=== PATIENT | female | born 1990 | race American Indian/Alaskan Native ===

== ENCOUNTER 2019-06-02 02:28 | Emergency (ER) | payer SELFPAY ==
[2019-06-02] MEDS ORDERED: ONDANSETRON 4 MG ODT TAB PO ONE (03:01)
[2019-06-02] MEDS ORDERED: HYDROcodone/ACETAMINOPHEN 5-325 MG TAB PO ONE (03:01)
[2019-06-02] MEDS ORDERED: CLINDAMYCIN 300 MG CAP PO ONE (03:02)
--- NOTE | 2019-06-02 03:07 | Emergency Department Report ---
<SHUBHAMKOURTNEY CARABALLO - Last Filed: 06/02/19 03:53> ED General Adult HPI - General Chief complaint: Earache Stated complaint: FAINT,LIGHTHEADED, BLEEDING Source: patient Mode of arrival: Ambulatory Limitations: No Limitations - History of Present Illness Initial comments: Patient is a 28-year-old -Serbian female with no past medical history who presents to the ED with complaint of acute onset persistent headache, lightheadedness and syncope with painful swollen erythematous maculopapular rash with peak purulent discharge on the right ear canal for the last 1 hour. Patient states that she was walking to the bathroom from her room when she felt lightheaded and had a syncopal episode with brief loss of consciousness. Patient states that she then noticed blood on her right ear canal. Patient denies dizziness, chest pain, shortness of breath, fever, chills, cough, sore throat, change in vision, seizures, back pain or neck pain and loss of consc iousness or nausea and vomiting and diarrhea MD Complaint: syncope, right ear mass and pain -: Sudden, hour(s) (1) Location: head, face (right ear pain with swollen painful rash on right ear canal with purulent discharge) Radiation: non-radiation Severity scale (0 -10): 5 Quality: aching, sharp Consistency: constant Improves with: none Worsens with: none Associated Symptoms: headaches, loss of appetite, malaise, rash (right thelma canal with pain and purulent discharge), syncope. denies: denies other symptoms, confusion, chest pain, cough, diaphoresis, shortness of breath, weakness, other Treatments Prior to Arrival: none - Related Data Previous Rx's Medication Instructions Recorded Last Taken Type Clindamycin [Clindamycin CAP] 300 mg PO Q6H 10 Days #40 cap 06/02/19 Unknown Rx diphenhydrAMINE [Benadryl CAP] 25 mg PO Q8HR PRN #30 capsule 06/02/19 Unknown Rx traMADoL [Ultram] 50 mg PO Q6HR PRN #12 tablet 06/02/19 Unknown Rx Allergies Allergy/AdvReac Type Severity Reaction Status Date / Time Sulfa (Sulfonamide Allergy Hives Verified 06/02/19 02:42 Antibiotics) ED Review of Systems Constitutional: denies: chills, fever Eyes: denies: eye pain, eye discharge, vision change ENT: ear pain (right ear pain with swollen rash with purulent discharge), congestion. denies: throat pain Respiratory: denies: cough, shortness of breath, wheezing Cardiovascular: syncope. denies: chest pain, palpitations, dyspnea on exertion, other Endocrine: no symptoms reported Gastrointestinal: denies: abdominal pain, nausea, vomiting, diarrhea Genitourinary: denies: urgency, dysuria, discharge Musculoskeletal: denies: back pain, joint swelling, arthralgia Skin: rash (swollen erythematous painful rash with purulent discharge and pain on right ear lidia). denies: lesions Neurological: denies: headache, weakness, paresthesias Psychiatric: denies: anxiety, depression Hematological/Lymphatic: denies: easy bleeding, easy bruising ED Past Medical Hx - Past Medical History Previous Medical History?: Yes Additional medical history: Scoliosis - Surgical History Past Surgical History?: No - Social History Smoking Status: Never Smoker Substance Use Type: None - Medications Home Medications: Home Medications Medication Instructions Recorded Confirmed Last Taken Type Clindamycin [Clindamycin CAP] 300 mg PO Q6H 10 Days #40 cap 06/02/19 Unknown Rx diphenhydrAMINE [Benadryl CAP] 25 mg PO Q8HR PRN #30 capsule 06/02/19 Unknown Rx traMADoL [Ultram] 50 mg PO Q6HR PRN #12 tablet 06/02/19 Unknown Rx ED Physical Exam - General Limitations: No Limitations General appearance: alert, in no apparent distress - Head Head exam: Present: atraumatic, normocephalic, normal inspection - Eye Eye exam: Present: normal appearance, PERRL, EOMI Pupils: Present: normal accommodation - ENT ENT exam: Present: normal orophraynx, mucous membranes moist, other (Swollen erythematous severely tender rash on right ear canal with purulent discharge and bleeding) - Neck Neck exam: Present: normal inspection, full ROM. Absent: tenderness, lymphadenopathy - Respiratory Respiratory exam: Present: normal lung sounds bilaterally. Absent: respiratory distress, wheezes, stridor, chest wall tenderness, accessory muscle use, decreased breath sounds - Cardiovascular Cardiovascular Exam: Present: regular rate, normal rhythm, normal heart sounds. Absent: systolic murmur, diastolic murmur, rubs, gallop - GI/Abdominal GI/Abdominal exam: Present: soft, normal bowel sounds. Absent: tenderness, guarding, hyperactive bowel sounds, hypoactive bowel sounds, mass - Extremities Exam Extremities exam: Present: normal inspection, full ROM, normal capillary refill - Back Exam Back exam: Present: normal inspection, full ROM. Absent: tenderness, CVA tenderness (R), muscle spasm, paraspinal tenderness, vertebral tenderness - Neurological Exam Neurological exam: Present: alert, oriented X3, CN II-XII intact, normal gait, reflexes normal - Psychiatric Psychiatric exam: Present: normal affect, normal mood - Skin Skin exam: Present: warm, dry, intact, normal color. Absent: rash ED Medical Decision Making - Medical Decision Making This is a 28-year-old -Serbian female with no past medical history who presented to the ED with complaint of acute onset persistent headache, right ear canal pain due to erythematous maculopapular rash with purulent discharge and bleeding and a single episode of syncope with brief loss of consciousness but 1 hour ago. Labs were drawn, imaging tests also ordered including chest x-ray, head CT scan without contrast, EKG and patient was treated for pain and also given initial oral clindamycin by mouth 1. Orthostatic blood pressure was also ordered and patient also hydrated with normal saline 1 L IV bolus. Patient care transferred to Mr. Francois Galicia [employer] at shift change at [address]400 hrs. Mr[address] Sherif Galicia shall review all lab test results and imaging reports and make appropriate disposition. - Differential Diagnosis right canal abscess; lightheadedness; syncope; ED Disposition Clinical Impression: Syncope and collapse, Abscess of right ear canal, Orthostatic lightheadedness, Mastoiditis of right side Community acquired pneumonia Qualifiers: Laterality: left Lung location: upper lobe of lung Qualified Code(s): J18.9 - Pneumonia, unspecified organism Disposition: TO HOME OR SELFCARE Is pt being admited?: No Does the pt Need Aspirin: No Condition: Stable Instructions: Syncope (ED), Bacterial Pneumonia (ED), Abscess (ED), Sinusitis (ED) Additional Instructions: Dr. Glenn Maciel [address], [place] [id number] Prescriptions: diphenhydrAMINE [Benadryl CAP] 25 mg PO Q8HR PRN #30 capsule PRN Reason: Congestion Clindamycin [Clindamycin CAP] 300 mg PO Q6H 10 Days #40 cap traMADoL [Ultram] 50 mg PO Q6HR PRN #12 tablet PRN Reason: Pain Referrals: GLENN MACIEL MD [Referring] - DIANNE Forms: Work/School Release Form(ED) <SHERIF GALICIA - Last Filed: 06/02/19 07:29> ED Review of Systems ROS: Stated complaint: FAINT,LIGHTHEADED, BLEEDING Other details as noted in HPI ED Course Vital Signs 06/02/19 06/02/19 06/02/19 02:32 04:18 04:48 Temperature 98.5 F Pulse Rate 63 Respiratory 18 20 20 Rate Blood Pressure 103/64 O2 Sat by Pulse 100 97 Oximetry 06/02/19 05:18 Temperature Pulse Rate Respiratory 20 Rate Blood Pressure O2 Sat by Pulse Oximetry ED Medical Decision Making - Lab Data Result diagrams: 06/02/19 04:31 06/02/19 04:31 - Radiology Data Radiology results: report reviewed, image reviewed interpreted by me: Ordering Physician: SHERIF GALICIA NP Date of Service: 06/02/19 Procedure(s): CT angio chest Accession Number(s): [id number] cc: SHERIF GALICIA NP CTA CHEST WITH IV CONTRAST INDICATION: Shortness of breath. Chest pain. Possible PE. TECHNIQUE: Axial CT images were obtained through the chest after injection of 100 cc Omnipaque 350 IV contrast. 3 plane MIP reconstructions were produced. All CT scans at this location are performed using CT dose reduction for ALARA by means of automated exposure control. COMPARISON: 2 views of the chest from earlier today. FINDINGS: PULMONARY ARTERIES: Well-opacified without visualization of from emboli. AORTA AND ARTERIES: No significant abnormality. MEDIASTINUM: There are bilateral subcentimeter noncalcified thyroid nodules. The heart is normal in size without a significant pericardial effusion. No additional significant abnormality. LUNGS: Dense consolidation is noted anteriorly along the left upper lobe. Scattered noncalcified solid nodules are seen throughout the right lower lobe. The largest nodule is located inferiorly and laterally and measures 8.5 mm on image 85 of series 2. Tiny solid noncalcified nodules are seen along the left lower lobe. The lungs are otherwise clear. No pneumothorax or pleural effusion is seen. ADDITIONAL FINDINGS: There are bilateral shotty axillary nodes. UPPER ABDOMEN: No acute findings. BONES: There is moderate lower thoracic dextroscoliosis with associated focal kyphosis. No acute abnormality or aggressive appearing osseous lesion is seen. IMPRESSION: 1. No CT evidence for pulmonary embolism. 2. Consolidation of the left upper lobe correlates with the abnormality seen on the prior chest radiographs. Bilateral lower lobe pulmonary nodules measure up to 8.5 mm and are of uncertain significance. Considerations include pneumonia and malignancy. Please correlate with the clinical findings. A follow-up CT of the chest with contrast in one month is recommended to document clearing. 3. Additional findings as above. Signer Name: Donald Mcbride MD Signed: 06/02/2019 6:19 AM Workstation Name: [id number] Transcribed By: BOBBY Dictated By: Donald Mcbride MD Electronically Authenticated By: Donald Mcbride MD Signed Date/Time: 06/02/19618 DD/ 7 TD/TT: Ordering Physician: SIOMARA FERNÁNDEZ Date of Service: 06/02/19 Procedure(s): XR chest routine 2V Accession Number(s): [id number] cc: SIOMARA FERNÁNDEZ Fluoro Time In Minutes: CHEST 2 VIEWS INDICATION / CLINICAL INFORMATION: syncope. COMPARISON: None available. FINDINGS: SUPPORT DEVICES: None. HEART / MEDIASTINUM: No significant abnormality. LUNGS / PLEURA: There is a left upper lobe airspace opacity. The lungs are otherwise clear. No significant pleural effusion. No pneumothorax. ADDITIONAL FINDINGS: Moderate thoracic extra scoliosis is noted. No significant additional findings. IMPRESSION: Nonspecific left upper lobe opacity could represent pneumonia. Please correlate with the clinical findings. Signer Name: Donald Mcbride MD Signed: 06/02/2019 3:37 AM Workstation Name: [id number] Transcribed By: MN Dictated By: Donald Mcbride MD Electronically Authenticated By: Donald Mcbride MD Signed Date/Time: 06/02/19336 DD/ 4 TD/TT: Ordering Physician: SIOMARA FERNÁNDEZ Date of Service: 06/02/19 Procedure(s): CT head/brain wo con Accession Number(s): [id number] cc: SIOMARA FERNÁNDEZ CT HEAD WITHOUT CONTRAST INDICATION : Syncope, right ear abscess. TECHNIQUE: Axial, coronal and sagittal CT imaging was performed from the skull apex through the skull base without contrast. All CT scans at this location are performed using CT dose reduction for ALARA by means of automated exposure control. COMPARISON: None available. FINDINGS: PARENCHYMA: No mass, midline shift, hemorrhage, extraaxial collection or acute territorial infarction. VENTRICLES: Symmetric and normal in size. SOFT TISSUES: Soft tissues including the orbits appear normal. No distinct abnormality is seen along the soft tissues at the level of the right ear. BONES: No acute osseous abnormality. SINUSES: The visualized sinuses are clear. The right mastoid air cells are opacified. The left mastoid air cells are patent. ADDITIONAL FINDINGS: None. IMPRESSION: 1. No acute intracranial abnormality. 2. Opacification of the right mastoid air cells could be related to the patient's reported right ear abscess. Signer Name: Donald Mcbride MD Signed: 06/02/2019 3:25 AM Workstation Name: [id number] Transcribed By: BOBBY Dictated By: Donald Mcbride MD Electronically Authenticated By: Donald Mcbride MD Signed Date/Time: 06/02/19324 DD/ 2 TD/TT: - Medical Decision Making Tx: BC x 2, Lactic acid, crp, cbc, cmp, abx: rocephin 1gm ivpb, Vaccomycin 1gm ivpb, NS ivfs @20 cc.kcc bolus, dicussed tx plan with patient and familymember including possible transfer for ENT Service, dx: Mastoiditis , pending acceptance. 0632: ENT Consult to [facility] Dr. Maciel, will call back plan[place] [facility] [place] right Mastoiditis, CAP, Consulted ENT Dr. Isabel Maciel, recommendation : Outpatient follow up today in of fice, discussed same with patient and family, pt agrees with this treatment plan. will follow up today with Dr. Glenn Maciel [address], [place] [address] Critical care attestation.: If time is entered above; I have spent that time in minutes in the direct care of this critically ill patient, excluding procedure time. ED Disposition Time of Disposition: 07:29
[2019-06-02] MEDS ORDERED: SODIUM CHLORIDE 0.9% 1000 ML 1,000 ML IV ONE (03:17)
--- NOTE | 2019-06-02 03:30 | Cat Scan Report ---
CT HEAD WITHOUT CONTRAST INDICATION : Syncope, right ear abscess. TECHNIQUE: Axial, coronal and sagittal CT imaging was performed from the skull apex through the skul l base without contrast. All CT scans at this location are performed using CT dose reduction for ALA RA by means of automated exposure control. COMPARISON: None available. FINDINGS: PARENCHYMA: No mass, midline shift, hemorrhage, extraaxial collection or acute territorial infarctio n. VENTRICLES: Symmetric and normal in size. SOFT TISSUES: Soft tissues including the orbits appear normal. No distinct abnormality is seen along the soft tissues at the level of the right ear. BONES: No acute osseous abnormality. SINUSES: The visualized sinuses are clear. The right mastoid air cells are opacified. The left mastoi d air cells are patent. ADDITIONAL FINDINGS: None. IMPRESSION: 1. No acute intracranial abnormality. 2. Opacification of the right mastoid air cells could be related to the patient's reported right ear abscess. Signer Name: Donald Mcbride MD Signed: 06/02/2019 3:25 AM Workstation Name: [id number]
--- NOTE | 2019-06-02 03:41 | XRay Report ---
CHEST 2 VIEWS INDICATION / CLINICAL INFORMATION: syncope. COMPARISON: None available. FINDINGS: SUPPORT DEVICES: None. HEART / MEDIASTINUM: No significant abnormality. LUNGS / PLEURA: There is a left upper lobe airspace opacity. The lungs are otherwise clear. No signif icant pleural effusion. No pneumothorax. ADDITIONAL FINDINGS: Moderate thoracic extra scoliosis is noted. No significant additional findings. IMPRESSION: Nonspecific left upper lobe opacity could represent pneumonia. Please correlate with the clinical fin dings. Signer Name: Donald Mcbride MD Signed: 06/02/2019 3:37 AM Workstation Name: [id number]
[2019-06-02] MEDS ORDERED: cefTRIAXone/NS 1 GM/50 ML 1 GM/50 ML BAG IV ONE (04:15)
[2019-06-02] MEDS ORDERED: methylPREDNISolone Sod Succinate 125 MG/2 ML INJ IV ONE (04:15)
[2019-06-02] MEDS ORDERED: VANCOMYCIN/NS 1 GM/250 ML 1 GM/250 ML BAG IV ONE (04:15)
[2019-06-02 05:07] LABS: Basophils % (Auto) 0.3 % (0.0-1.8); Eosinophils # (Auto) 0.1 K/mm3 (0.0-0.4); Hematocrit 32.7 % (30.3-42.9); Hemoglobin 10.8 gm/dl (10.1-14.3); Lymphocytes # (Auto) 0.5 K/mm3 (1.2-5.4); Lymphocytes % (Auto) 15.7 % (13.4-35.0); Mean Corpuscular HGB Conc 33 % (30-34); Mean Corpuscular Volume 87 fl (79-97); Monocytes # (Auto) 0.3 K/mm3 (0.0-0.8); Monocytes % (Auto) 8.4 % (0.0-7.3); Platelet Count 239 K/mm3 (140-440); Red Blood Count 3.76 M/mm3 (3.65-5.03); Red Cell Distribution Width 13.4 % (13.2-15.2)
[2019-06-02 05:09] LABS: Alanine Aminotransferase 11 units/L (7-56); Albumin 3.6 g/dL (3.9-5); BUN/Creatinine Ratio 15; Blood Urea Nitrogen 9 mg/dL (7-17); Calcium 8.6 mg/dL (8.4-10.2); Hemolysis Index 0
--- NOTE | 2019-06-02 06:24 | Cat Scan Report ---
CTA CHEST WITH IV CONTRAST INDICATION: Shortness of breath. Chest pain. Possible PE. TECHNIQUE: Axial CT images were obtained through the chest after injection of 100 cc Omnipaque 350 IV contrast. 3 plane MIP reconstructions were produced. All CT scans at this location are performed using CT dose reduction for ALARA by means of automated exposure control. COMPARISON: 2 views of the chest from earlier today. FINDINGS: PULMONARY ARTERIES: Well-opacified without visualization of from emboli. AORTA AND ARTERIES: No significant abnormality. MEDIASTINUM: There are bilateral subcentimeter noncalcified thyroid nodules. The heart is normal in s ize without a significant pericardial effusion. No additional significant abnormality. LUNGS: Dense consolidation is noted anteriorly along the left upper lobe. Scattered noncalcified donal d nodules are seen throughout the right lower lobe. The largest nodule is located inferiorly and late rally and measures 8.5 mm on image 85 of series 2. Tiny solid noncalcified nodules are seen along the left lower lobe. The lungs are otherwise clear. No pneumothorax or pleural effusion is seen. ADDITIONAL FINDINGS: There are bilateral shotty axillary nodes. UPPER ABDOMEN: No acute findings. BONES: There is moderate lower thoracic dextroscoliosis with associated focal kyphosis. No acute abno rmality or aggressive appearing osseous lesion is seen. IMPRESSION: 1. No CT evidence for pulmonary embolism. 2. Consolidation of the left upper lobe correlates with the abnormality seen on the prior chest radio graphs. Bilateral lower lobe pulmonary nodules measure up to 8.5 mm and are of uncertain significance . Considerations include pneumonia and malignancy. Please correlate with the clinical findings. A fol low-up CT of the chest with contrast in one month is recommended to document clearing. 3. Additional findings as above. Signer Name: Donald Mcbride MD Signed: 06/02/2019 6:19 AM Workstation Name: [id number]
[2019-06-02 07:25] VITALS: BP 106/74
== END 2019-06-02 07:52 | disposition home or self-care (01) ==
LOC: ED 02:28
DX: J18.9 Pneumonia, unspecified organism (principal); H60.01 Abscess of right external ear; H70.91 Unspecified mastoiditis, right ear; Z88.2 Allergy status to sulfonamides; Z79.899 Other long term (current) drug therapy
CPT/HCPCS: 36415; 70450; 71046; 71275; 80053; 84484; 85025; 85379; 86140; 87040; 93005; 93010; 96365; 96366; 96368; 96375; 99284; J0696; J2930; J3370; J7030; Q9967; Q0162

== ENCOUNTER 2019-08-07 12:06 | Emergency (ER) | payer BC ==
[2019-08-07 12:29] VITALS: BP 95/60
--- NOTE | 2019-08-07 12:41 | Event Note ---
ED Screening Note ED Screening Note: 28-year-old female that presents with CP and cough with fever. This initial assessment/diagnostic orders/clinical plan/treatment(s) is/are subject to change based on patients health status, clinical progression and re- assessment by fellow clinical providers in the ED. Further treatment and workup at subsequent clinical providers discretion. Patient/guardian urged not to elope from the ED as their condition may be serious if not clinically assessed and managed. Initial orders include: CXR
--- NOTE | 2019-08-07 13:15 | XRay Report ---
CHEST 2 VIEWS INDICATION / CLINICAL INFORMATION: cp/cough. COMPARISON: 08/03/2018 FINDINGS: SUPPORT DEVICES: None. HEART / MEDIASTINUM: No significant abnormality. LUNGS / PLEURA: The left upper lobe opacity is unchanged. No pneumothorax. ADDITIONAL FINDINGS: Thoracolumbar scoliosis. IMPRESSION: 1. Left upper lobe disease is unchanged in appearance. Signer Name: Zay Holliday MD Signed: 08/07/2019 1:11 PM Workstation Name: [id number]
--- NOTE | 2019-08-07 14:09 | Emergency Department Report ---
ED General Adult HPI - General Chief complaint: Chest Pain Stated complaint: CHEST PAIN/COUGHING Time Seen by Provider: 08/07/19 12:40 Source: patient Mode of arrival: Ambulatory Limitations: No Limitations - History of Present Illness Initial comments: Patient is a 28-year-old F [place] female who is presenting with left-sided chest pain for 2 days. Patient states the pain is associated with a cough that is nonproductive. Cough is painful and a 10 out of 10 in severity. Patient was seen in the beginning of May 2019 for similar symptoms. At that time the patient had chest pain shortness of breath. CT was done on 06/02/2019 which showed no evidence of pulmonary embolus however there was consolidation of the left upper lobe which correlated with the x-ray that was done the same day. Bilateral lower lobe pulmonary nodules measuring up to 8.5 mm of uncertain certain significance were found as well. Considerations at that time was pne umonia malignancy. It was believed that the patient likely had pneumonia and patient was placed on antibiotics. Patient had decrease of her symptoms on the antibiotics. Patient denies any nausea vomiting diarrhea. Patient has had cough chills and possibility of fever. - Related Data Previous Rx's Medication Instructions Recorded Last Taken Type Clindamycin [Clindamycin CAP] 300 mg PO Q6H 10 Days #40 cap 06/02/19 Unknown Rx diphenhydrAMINE [Benadryl CAP] 25 mg PO Q8HR PRN #30 capsule 06/02/19 Unknown Rx traMADoL [Ultram] 50 mg PO Q6HR PRN #12 tablet 06/02/19 Unknown Rx Albuterol INH(or & Nicu Only) 2 puff IH QID PRN #1 inhalation 08/07/19 Unknown Rx [ProAir HFA Inhaler] Ibuprofen [Motrin 600 MG tab] 600 mg PO Q8H PRN #20 tablet 08/07/19 Unknown Rx levoFLOXacin [Levaquin TAB] 500 mg PO QDAY #7 tablet 08/07/19 Unknown Rx predniSONE [Deltasone] 20 mg PO QDAY #5 tab 08/07/19 Unknown Rx traMADoL [Ultram] 50 mg PO Q6HR PRN #12 tablet 08/07/19 Unknown Rx Allergies Allergy/AdvReac Type Severity Reaction Status Date / Time Sulfa (Sulfonamide Allergy Hives Verified 06/02/19 02:42 Antibiotics) ED Review of Systems ROS: Stated complaint: CHEST PAIN/COUGHING Other details as noted in HPI Comment: All other systems reviewed and negative ED Past Medical Hx - Past Medical History Additional medical history: Scoliosis - Surgical History Past Surgical History?: No - Social History Smoking Status: Current Every Day Smoker Substance Use Type: None - Medications Home Medications: Home Medications Medication Instructions Recorded Confirmed Last Taken Type Clindamycin [Clindamycin CAP] 300 mg PO Q6H 10 Days #40 cap 06/02/19 Unknown Rx diphenhydrAMINE [Benadryl CAP] 25 mg PO Q8HR PRN #30 capsule 06/02/19 Unknown Rx traMADoL [Ultram] 50 mg PO Q6HR PRN #12 tablet 06/02/19 Unknown Rx Albuterol INH(or & Nicu Only) 2 puff IH QID PRN #1 inhalation 08/07/19 Unknown Rx [ProAir HFA Inhaler] Ibuprofen [Motrin 600 MG tab] 600 mg PO Q8H PRN #20 tablet 08/07/19 Unknown Rx levoFLOXacin [Levaquin TAB] 500 mg PO QDAY #7 tablet 08/07/19 Unknown Rx predniSONE [Deltasone] 20 mg PO QDAY #5 tab 08/07/19 Unknown Rx traMADoL [Ultram] 50 mg PO Q6HR PRN #12 tablet 08/07/19 Unknown Rx ED Physical Exam - General Limitations: No Limitations General appearance: alert, in no apparent distress, other (Patient is slightly pale and appears chronically ill) - Head Head exam: Present: atraumatic, normocephalic - Eye Eye exam: Present: normal appearance - ENT ENT exam: Present: normal orophraynx, mucous membranes moist - Neck Neck exam: Present: normal inspection - Respiratory Respiratory exam: Present: rhonchi. Absent: normal lung sounds bilaterally, respiratory distress, wheezes, rales - Cardiovascular Cardiovascular Exam: Present: regular rate, normal rhythm, normal heart sounds. Absent: systolic murmur, diastolic murmur, rubs, gallop - GI/Abdominal GI/Abdominal exam: Present: soft, normal bowel sounds. Absent: distended, tenderness, guarding, rebound - Extremities Exam Extremities exam: Present: normal inspection - Back Exam Back exam: Present: normal inspection - Neurological Exam Neurological exam: Present: alert, oriented X3 - Psychiatric Psychiatric exam: Present: normal affect, normal mood - Skin Skin exam: Present: warm, dry, intact, normal color. Absent: rash ED Course Vital Signs 08/07/19 12:27 Temperature 99.7 F H Pulse Rate 99 H Respiratory 18 Rate Blood Pressure 95/60 O2 Sat by Pulse 100 Oximetry ED Medical Decision Making - EKG Data -: EKG Interpreted by Me EKG shows normal: sinus rhythm, axis, intervals, QRS complexes, ST-T waves Rate: normal - Radiology Data CHEST 2 VIEWS INDICATION / CLINICAL INFORMATION: cp/cough. COMPARISON: 08/03/2018 FINDINGS: SUPPORT DEVICES: None. HEART / MEDIASTINUM: No significant abnormality. LUNGS / PLEURA: The left upper lobe opacity is unchanged. No pneumothorax. ADDITIONAL FINDINGS: Thoracolumbar scoliosis. IMPRESSION: 1. Left upper lobe disease is unchanged in appearance. Signer Name: Zay Holliday MD Signed: 08/07/2019 1:11 PM Workstation Name: [id number] - Medical Decision Making Differential diagnosis on this patient includes pulmonary embolus, pneumonia, sarcoidosis, malignancy lung cancer, pulmonary nodules, atelectasis. Patient's x-ray today is very similar and essentially unchanged from her x-ray 2 months ago. Patient did have decrease in her symptoms after antibiotics however her symptoms have returned. Patient may be having superimposed pneumonia on top of a malignancy or scar tissue or granuloma such as sarcoidosis. Patient will be restarted on antibiotics. Strongly urged the patient to follow-up with pulmonology as this lesion may need to have a biopsy with bronchoscopy. Patient also given medication for symptomatic relief will be discharged home. Critical care attestation.: If time is entered above; I have spent that time in minutes in the direct care of this critically ill patient, excluding procedure time. ED Disposition Clinical Impression: Lung consolidation Disposition: DC-01 TO HOME OR SELFCARE Is pt being admited?: No Does the pt Need Aspirin: No Condition: Stable Additional Instructions: It is very important that you follow-up with pulmonology. Your x-ray is unchanged from your previous studies 2 months ago. We will be restarted on antibiotics but she need to follow-up to have a lung tumor or sarcoidosis ruled out Referrals: PRIMARY CARE, [Primary Care Provider] - 3-5 Days MIKAEL CARTWRIGHT MD [Staff Physician] - 3-5 Days Time of Disposition: 14:13
== END 2019-08-07 14:30 | disposition home or self-care (01) ==
LOC: ED 12:06
DX: J18.1 Lobar pneumonia, unspecified organism (principal); F17.200 Nicotine dependence, unspecified, uncomplicated
CPT/HCPCS: 71046; 93005; 93010; 99283

== ENCOUNTER 2019-11-22 15:17 | Emergency (ER) | payer SELFPAY ==
[2019-11-22 15:23] VITALS: BP 108/77
[2019-11-22] MEDS ORDERED: SODIUM CHLORIDE 0.9% 1000 ML 1,000 ML IV ONE (16:49)
[2019-11-22] MEDS ORDERED: HYDROcodone/ACETAMINOPHEN 5-325 MG TAB PO ONE (16:50)
--- NOTE | 2019-11-22 16:56 | Emergency Department Report ---
- General Chief complaint: Skin Rash Stated complaint: RASH Time Seen by Provider: 11/22/19 16:38 Source: patient Mode of arrival: Ambulatory Limitations: No Limitations - History of Present Illness Initial comments: 29-year-old -[place] female presents to the emergency room for rash around her rectum for the last 2 days. Patient states that she cannot even defecate or pass gas because of the discomfort. Patient also reports that she has had a 20 pound weight loss is unintentional in the last 2 months. Patient reports she has a decreased appetite fatigue. Patient reports that she is set for surgery for growth in her right ear. Patient states she also has a history of fluid on the lungs that was diagnosed here at the hospital May 2019. - Related Data Previous Rx's Medication Instructions Recorded Last Taken Type Clindamycin [Clindamycin CAP] 300 mg PO Q6H 10 Days #40 cap 06/02/19 Unknown Rx diphenhydrAMINE [Benadryl CAP] 25 mg PO Q8HR PRN #30 capsule 06/02/19 Unknown Rx traMADoL [Ultram] 50 mg PO Q6HR PRN #12 tablet 06/02/19 Unknown Rx Albuterol INH(or & Nicu Only) 2 puff IH QID PRN #1 inhalation 08/07/19 Unknown Rx [ProAir HFA Inhaler] Ibuprofen [Motrin 600 MG tab] 600 mg PO Q8H PRN #20 tablet 08/07/19 Unknown Rx levoFLOXacin [Levaquin TAB] 500 mg PO QDAY #7 tablet 08/07/19 Unknown Rx predniSONE [Deltasone] 20 mg PO QDAY #5 tab 08/07/19 Unknown Rx Hydrocort/Pramoxine [Proctofoam-Hc] 10 gm WA QID #1 can 11/22/19 Unknown Rx Valacyclovir HCl [Valtrex] 1,000 mg PO BID 10 Days #20 tablet 11/22/19 Unknown Rx traMADoL [Ultram 50 MG tab] 50 mg PO Q6HR PRN #12 tablet 11/22/19 Unknown Rx Hydrocortisone [Anucort-HC SUPPOS] 25 mg RC BID #1 box 11/23/19 Unknown Rx Allergies Allergy/AdvReac Type Severity Reaction Status Date / Time Sulfa (Sulfonamide Allergy Hives Verified 06/02/19 02:42 Antibiotics) Abscess Boil HPI - HPI Chief Complaint: Skin Rash Stated Complaint: RASH Time Seen by Provider: 11/22/19 16:38 Home Medications: Previous Rx's Medication Instructions Recorded Last Taken Type Clindamycin [Clindamycin CAP] 300 mg PO Q6H 10 Days #40 cap 06/02/19 Unknown Rx diphenhydrAMINE [Benadryl CAP] 25 mg PO Q8HR PRN #30 capsule 06/02/19 Unknown Rx traMADoL [Ultram] 50 mg PO Q6HR PRN #12 tablet 06/02/19 Unknown Rx Albuterol INH(or & Nicu Only) 2 puff IH QID PRN #1 inhalation 08/07/19 Unknown Rx [ProAir HFA Inhaler] Ibuprofen [Motrin 600 MG tab] 600 mg PO Q8H PRN #20 tablet 08/07/19 Unknown Rx levoFLOXacin [Levaquin TAB] 500 mg PO QDAY #7 tablet 08/07/19 Unknown Rx predniSONE [Deltasone] 20 mg PO QDAY #5 tab 08/07/19 Unknown Rx Hydrocort/Pramoxine [Proctofoam-Hc] 10 gm WA QID #1 can 11/22/19 Unknown Rx Valacyclovir HCl [Valtrex] 1,000 mg PO BID 10 Days #20 tablet 11/22/19 Unknown Rx traMADoL [Ultram 50 MG tab] 50 mg PO Q6HR PRN #12 tablet 11/22/19 Unknown Rx Hydrocortisone [Anucort-HC SUPPOS] 25 mg RC BID #1 box 11/23/19 Unknown Rx Allergies/Adverse Reactions: Allergies Allergy/AdvReac Type Severity Reaction Status Date / Time Sulfa (Sulfonamide Allergy Hives Verified 06/02/19 02:42 Antibiotics) ED Review of Systems ROS: Stated complaint: RASH Other details as noted in HPI ED Past Medical Hx - Past Medical History Previous Medical History?: No Additional medical history: Scoliosis - Social History Smoking Status: Never Smoker Substance Use Type: None - Medications Home Medications: Home Medications Medication Instructions Recorded Confirmed Last Taken Type Clindamycin [Clindamycin CAP] 300 mg PO Q6H 10 Days #40 cap 06/02/19 Unknown Rx diphenhydrAMINE [Benadryl CAP] 25 mg PO Q8HR PRN #30 capsule 06/02/19 Unknown Rx traMADoL [Ultram] 50 mg PO Q6HR PRN #12 tablet 06/02/19 Unknown Rx Albuterol INH(or & Nicu Only) 2 puff IH QID PRN #1 inhalation 08/07/19 Unknown Rx [ProAir HFA Inhaler] Ibuprofen [Motrin 600 MG tab] 600 mg PO Q8H PRN #20 tablet 08/07/19 Unknown Rx levoFLOXacin [Levaquin TAB] 500 mg PO QDAY #7 tablet 08/07/19 Unknown Rx predniSONE [Deltasone] 20 mg PO QDAY #5 tab 08/07/19 Unknown Rx Hydrocort/Pramoxine [Proctofoam-Hc] 10 gm WA QID #1 can 11/22/19 Unknown Rx Valacyclovir HCl [Valtrex] 1,000 mg PO BID 10 Days #20 tablet 11/22/19 Unknown Rx traMADoL [Ultram 50 MG tab] 50 mg PO Q6HR PRN #12 tablet 11/22/19 Unknown Rx Hydrocortisone [Anucort-HC SUPPOS] 25 mg RC BID #1 box 11/23/19 Unknown Rx ED Physical Exam - General Limitations: No Limitations General appearance: alert, in distress, cachectic - Head Head exam: Present: atraumatic, normocephalic - Eye Eye exam: Present: normal appearance - ENT ENT exam: Present: mucous membranes moist - Respiratory Respiratory exam: Present: normal lung sounds bilaterally. Absent: respiratory distress - Cardiovascular Cardiovascular Exam: Present: tachycardia - Neurological Exam Neurological exam: Present: alert, oriented X3, normal gait - Psychiatric Psychiatric exam: Present: normal affect, normal mood - Expanded Skin Exam Expanded Distribution of rash: genitals (Rectum) Description of rash: Present: tenderness, erythematous, blisters ED Course Vital Signs 11/22/19 11/22/19 15:21 19:15 Temperature 98 F Pulse Rate 115 H 78 Respiratory 16 20 Rate Blood Pressure 108/77 O2 Sat by Pulse 100 98 Oximetry ED Medical Decision Making - Lab Data Result diagrams: 11/22/19 17:07 11/22/19 17:07 - Medical Decision Making 29-year-old -[place] female presents to the emergency room for rash around her rectum for the last 2 days. Patient states that she cannot even defecate or pass gas because of the discomfort. Patient also reports that she has had a 20 pound weight loss is unintentional in the last 2 months. Patient reports she has a decreased appetite fatigue. Patient reports that she is set for surgery for growth in her right ear. Patient states she also has a history of fluid on the lungs that was diagnosed here at the hospital May 2019. Patient will be treated for hemorrhoid and herpes. Discussed with patient she needs to follow-up with the infectious disease provider or primary care provider and a colorectal provider. Patient be discharged home on Valtrex tramadol and proctform. 11/23/19:Addendum patient returned back the next day stating that the Proctofo darrius not available. Patient be placed on Anusol suppositories and to follow-up with colorectal specialist. Critical care attestation.: If time is entered above; I have spent that time in minutes in the direct care of this critically ill patient, excluding procedure time. ED Disposition Clinical Impression: Hemorrhoid, Herpes genitalis in women, Atrial tachycardia, Anal or rectal pain Disposition: - TO HOME OR SELFCARE Is pt being admited?: No Does the pt Need Aspirin: No Condition: Stable Instructions: Hemorrhoids (ED), Genital Herpes Simplex (ED) Additional Instructions: Take medication as prescribed. Do not operate heavy machinery while taking pain medication. Follow-up with a rectal specialist infectious disease specialist and her primary care provider. I have listed all their information below for your convenience. Prescriptions: Hydrocortisone [Anucort-HC SUPPOS] 25 mg RC BID #1 box Hydrocort/Pramoxine [Proctofoam-Hc] 10 gm WA QID #1 can traMADoL [Ultram 50 MG tab] 50 mg PO Q6HR PRN #12 tablet PRN Reason: Pain Valacyclovir HCl [Valtrex] 1,000 mg PO BID 10 Days #20 tablet Referrals: PRIMARY CAREMD [Primary Care Provider] - 3-5 Days [facility] [Provider Group] - 3-5 Days JIMMIE VILLAVICENCIO MD [Staff Physician] - 3-5 Days SELWYN MARTEL MD [Staff Physician] - 3-5 Days Forms: Work/School Release Form(ED)
[2019-11-22 17:34] LABS: Hematocrit 29.2 % (30.3-42.9); Hemoglobin 9.5 gm/dl (10.1-14.3); Mean Corpuscular HGB Conc 33 % (30-34); Mean Corpuscular Volume 80 fl (79-97); Platelet Count 251 K/mm3 (140-440); Red Blood Count 3.63 M/mm3 (3.65-5.03); Red Cell Distribution Width 17.3 % (13.2-15.2)
[2019-11-22 17:57] LABS: Alanine Aminotransferase 13 units/L (7-56); Albumin 3.5 g/dL (3.9-5); BUN/Creatinine Ratio 23; Blood Urea Nitrogen 9 mg/dL (7-17); Calcium 9.1 mg/dL (8.4-10.2); Hemolysis Index 10
[2019-11-22 18:17] LABS: Basophils % (Manual) 0 % (0.0-1.8); Eosinophils % (Manual) 0 % (0.0-4.3); Total Cells Counted 100
[2019-11-22 18:18] LABS: Anisocytosis 1+; Spherocytes 1+
== END 2019-11-22 19:29 | disposition home or self-care (01) ==
LOC: ED 15:17
DX: K64.8 Other hemorrhoids (principal); A60.09 Herpesviral infection of other urogenital tract
CPT/HCPCS: 36415; 80053; 85007; 85025; 99283; J7030

== ENCOUNTER 2019-11-29 00:10 | Emergency (ER) | payer OTHER ==
[2019-11-29] MEDS ORDERED: ONDANSETRON 4 MG ODT TAB PO ONE (02:08)
[2019-11-29] MEDS ORDERED: oxyCODONE /ACETAMINOPHEN 5-325MG TAB PO ONE (02:08)
[2019-11-29] MEDS ORDERED: IBUPROFEN 600 MG TAB PO ONE (02:08)
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
--- NOTE | 2019-11-29 05:05 | Emergency Department Report ---
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 mg PO Q8H PRN #30 tablet PRN Reason: Pain traMADoL [Ultram] 50 mg PO Q6HR PRN #12 tablet PRN Reason: Pain tiZANidine [Zanaflex 4mg TAB] 4 mg PO Q8H PRN #24 tablet PRN Reason: Muscle Spasm [facility] FRANKO [Primary Care Provider] - 3-5 Days [facility] [Provider Group] - 3-5 Days SELWYN MARTEL MD [Staff Physician] - 3-5 Days [facility] [Outside] - 3-5 Days Time of Disposition: 05:28 Print Language: MALTESE
[2019-11-29 06:06] VITALS: BP 107/82
== END 2019-11-29 06:07 | disposition home or self-care (01) ==
LOC: ED 00:10
DX: S43.402A Unspecified sprain of left shoulder joint, initial encounter (principal); S83.92XA Sprain of unspecified site of left knee, initial encounter; M62.838 Other muscle spasm; M62.830 Muscle spasm of back; J18.9 Pneumonia, unspecified organism; V89.2XXA Person injured in unspecified motor-vehicle accident, traffic, initial encounter; Y93.89 Activity, other specified; Y92.410 Unspecified street and highway as the place of occurrence of the external cause; Y99.8 Other external cause status
CPT/HCPCS: 36415; 70450; 72125; 72128; 72131; 84703; Q0162